=== PATIENT | male | born 1930 | race Caucasian/White ===

== ENCOUNTER 2017-02-04 05:40 | Day surgery (SDC) | payer MEDICARE, OTHER ==
[~2017-02-04] VITALS: Ht 170.2 cm; Wt 89.8 kg
[~2017-02-04 05:40] MED LIST: ASPIR 8181 MG PO; ATENOLOL50 MG PO; CALCIUM600 MG PO; FOLIC ACID1 MG PO; FUROSEMIDE20 MG PO; LANSOPRAZOLE30 MG PO; METHOTREXATE2.5 MG PO; SYMBICORT 16010.2 GM INH; SYNTHROID137 MCG PO
[2017-02-04] MEDS ORDERED: NORCO 5-325 TA1 EACH PO (11:39)
--- NOTE | 2017-02-05 09:34 | OR ---
[facility] [address], [place] [address] Signed DATE OF PROCEDURE: 02/04/17 PREOPERATIVE DIAGNOSIS: Reducible left inguinal hernia. POSTOPERATIVE DIAGNOSIS: Reducible left indirect inguinal hernia. PROCEDURE PERFORMED: Left Charlie onlay mesh inguinal herniorrhaphy. ESTIMATED BLOOD LOSS: None. INDICATIONS Annabelle is an 86-year-old gentleman who remains incredibly active and unbelievably muscular for his age. He said he has had constipation now for several years. He generally drinks prune juice every morning with good results. However, he has noticed pain and swelling in his left groin the last several months. He said it has become quite problematic. He said it is always swollen and the pain is always a 3 to a 5/10. He said it is worse with any activities. He said it is getting larger and it is now interfering with his bowel movements. He was worried that he might have a hernia. He went to his primary care provider. He was then asked to see me as a general surgeon. In the office, he clearly has a moderate to large left inguinal hernia. We were unable to reduce it in the office, but in the OR once we had pharmacologic paralysis, we were able to reduce it. The right side was unremarkable. Both testicles are descended and unremarkable. I gave Annabelle a booklet on hernias in the office. We discussed the nature of an inguinal hernia. He understands the difference between the primary suture repair and a mesh repair. He also understands the expected intraop and postop course. There is risk of surgery including, but not limited to bleeding, infection, scarring, change in contour of the skin, damage to the nerves, ischemic orchitis, recurrent hernias, and chronic pain. He has expressed understanding and would like to proceed. DESCRIPTION OF PROCEDURE I met with Annabelle and his son in our preop area. We all agreed it was the left groin we marked that appropriately. After this, Annabelle was taken into our operating room and placed in a supine position under general endotracheal tube anesthesia. He was given preoperative antibiotics along with subcutaneous heparin. SCDs were utilized. He was then prepped and draped in usual sterile fashion. We utilized our standard oblique incision in the left groin and carried that down to the tissue bluntly and with the cautery. The external oblique fascia was opened along its length and developed medially and laterally. The ilioinguinal iliohypogastric nerves were visualized and protected throughout the case. The cord structures were elevated at the level of pubic tubercle with the help of the Kristine drain. The direct space was unremarkable. 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 After this, we could easily see Electronically Signed By: TISH DUFF MD 02/05/17 0934 PATIENT NAME: ANNABELLE OROZCO OPERATIVE REPORT DATE OF : [birth year] PHYSICIAN: TISH DUFF MD REPORT #: [id number] REPORT IS CONFIDENTIAL AND NOT TO BE RELEASED WITHOUT AUTHORIZATION [address] [address] Signed his hernia sac coming through the deep ring. It was from the cord structures and sutured ligated at the neck, amputated, and passed off the field. We then cut a piece of flat Prolene mesh to fit his groin and a slit was made in the mesh to accommodate the cord structures at the level of deep ring. The mesh was held in place medially and laterally with the help of running #1 Prolene suture. There was no undue tension of the mesh on the cord structures at the level of deep ring. After this, the wound was irrigated and suctioned out until clear. Local anesthetic was copiously injected into the wound. The external oblique fascia was closed over the repair with the help of a running 2-0 PDS suture. The Gregg's fascia was reapproximated in a running 3-0 Monocryl suture. The dermis was reapproximated with interrupted 3-0 subcuticular Monocryl sutures. Skin edges were reapproximated with running 6-0 fast absorbing plain gut suture. Dry gauze and tape were then applied. After this, the aorta was awakened from his anesthesia, extubated in the OR, taken to recovery in stable condition. MD MELISSA Duval/Modl /[id number] cc: Dr. Gavin Francisco Electronically Signed By: TISH DUFF MD 02/05/17 0934 PATIENT NAME: ANNABELLE OROZCO OPERATIVE REPORT DATE OF : [birth year] PHYSICIAN: TISH DUFF MD REPORT #: [id number] REPORT IS CONFIDENTIAL AND NOT TO BE RELEASED WITHOUT AUTHORIZATION
== END 2017-02-04 11:50 | disposition home or self-care (01) ==
LOC: DS 05:40
PROVIDERS: Colon & Rectal Surgery
PROC: 0YU60JZ Supplement Left Inguinal Region with Synthetic Substitute, Open Approach (ICD-10-PCS; principal; 2017-02-04 06:45)
DX: K40.90 Unilateral inguinal hernia, without obstruction or gangrene, not specified as recurrent (principal); Z79.899 Other long term (current) drug therapy; I10 Essential (primary) hypertension; J44.9 Chronic obstructive pulmonary disease, unspecified; K21.9 Gastro-esophageal reflux disease without esophagitis; E03.9 Hypothyroidism, unspecified; M06.9 Rheumatoid arthritis, unspecified; N40.0 Benign prostatic hyperplasia without lower urinary tract symptoms; Z87.11 Personal history of peptic ulcer disease; M85.80 Other specified disorders of bone density and structure, unspecified site; Z90.89 Acquired absence of other organs; Z98.1 Arthrodesis status; Z79.82 Long term (current) use of aspirin; Z87.891 Personal history of nicotine dependence; Z88.0 Allergy status to penicillin; Z88.8 Allergy status to other drugs, medicaments and biological substances; Z98.890 Other specified postprocedural states
CPT/HCPCS: 00830; C1781; J0690; J1100; J1644; J2250; J2405; J2704; J3010; J7120

== ENCOUNTER 2017-05-05 18:34 | Observation (INO) | payer MEDICARE, OTHER ==
[~2017-05-05] VITALS: Ht 170.2 cm; Wt 88.4 kg
[~2017-05-05 18:34] MED LIST changes: +NORCO 5-325 TA1 EACH PO
[2017-05-05] MEDS ORDERED: BENICAR20 MG PO (18:58)
--- NOTE | 2017-05-06 01:30 | NUR ---
HANDOFF REPORT RECEIVED FROM BUCKY SUTTON IN EMERGENCY DEPARTMENT. PT TO TRAVEL VIA STRETCHER ON ROOM AIR TO MEDICAL SURGICAL DEPT.
--- NOTE | 2017-05-06 01:40 | NUR ---
PT ARRIVES TO MED SURG FLOOR BY STRETCHER, ABLE TO AMBULATE FROM STRETCHER TO HOSPITAL BED FROM HALLWAY, DENIES SOB, SPO2 95% ON ROOM AIR ON ARRIVAL. PT BROUGHT CRACKERS, ICE WATER PER REQUEST. CRACKLES NOTED BILATERALLY IN BASES, LUNGS SOUND CLEAR IN UPPER LOBES. IV SITE IN LEFT ARM FLUSHES EASILY, SITE WNL. PT HAS COUGH, NON-PRODUCTIVE AT THIS TIME, STATES HE "SOMETIMES COUGHS STUFF UP". PT GIVEN CALL LIGHT, PERSONAL SUPPLIES, TISSUES WITHIN REACH. INSTRUCTED TO CALL BEFORE GETTING UP DUE TO HX OF FALLS.
--- NOTE | 2017-05-06 02:30 | NUR ---
PT SLEEPING, AWAKENS TO RN VOICE. PT COUGHING, NON-PRODUCTIVE. ASSISTED PT TO RESTROOM FOR 150 ML VOID WITH SBA, PT DENIES SOB. PROVIDED PT WITH ORAL CARE SUPPLIES, DENTURES IN CUP. NC WITH 2L OXYGEN SET UP FOR PT USE WHILE SLEEPING. PT HAS CALL LIGHT IN REACH. NO ADDITIONAL REQUESTS AT THIS TIME.
--- NOTE | 2017-05-06 04:14 | NUR ---
CHECKED ON PT, PT SLEEPING, LIGHTS OFF IN ROOM, VISIBLE CHEST RISE. RT MARYJANE IN ROOM, NO NEBULIZER GIVEN AT THIS TIME PT ASLEEP.
--- NOTE | 2017-05-06 06:07 | NUR ---
PT SLEEPING ON RIGHT SIDE, EYES CLOSED, RR 18, PT HAS NC ON WITH 2L OXYGEN. CALL LIGHT IN REACH.
--- NOTE | 2017-05-06 06:27 | NUR ---
PT HAS SLEPT THROUGHOUT MORNING ON 2L OXYGEN BY SC AFTER ARRIVING TO FLOOR SHORTLY AFTER 0100. PT ALERT AND ORIENTED X 3, COOPERATIVE. CRACKLES HEARD IN PTS LUNGS BILATERALLY IN LOWER BASES. PT HAS BEEN UP TO RESTROOM FOR VOID, SBA. IV SALINE LOCKED WNL.
--- NOTE | 2017-05-06 06:35 | NUR ---
IN PT ROOM TO ASSESS PT, PT SLEEPING, AWAKENS TO TOUCH. LUNGS SOUND DIMINISHED, CRACKLES NOTED IN LOWER LOBES BILATERALLY. PT CONTINUES TO HAVE CONGESTED COUGH. PT HAS NO REQUESTS AT THIS TIME, CALL LIGHT IN REACH. PT CONTINUES TO BE ON 2L NC FOR SLEEP.
--- NOTE | 2017-05-06 07:25 | NUR ---
REPORT RECEIVED FROM MIRTA. PATIENT RESTING IN BED, APPEARS TO BE SLEEPING AT THE TIME OF REPORT. NO APPARENT DISTRESS. RR EVEN/UNLABORED PATIENT IS ON 2L OF O2. CALL LIGHT IN REACH.
--- NOTE | 2017-05-06 08:31 | NUR ---
BP MEDS HOLD DUE TO LOW BP. WILL TALKED TO DR RAMACHANDRAN.
--- NOTE | 2017-05-06 08:40 | NUR ---
PATIENT RESTING IN THE CHAIR. RT WAS IN ROOM TO ADMINISTERED NEB TX. PATIENT 02 SAT IS ABOVE 94% ON RA. PATIENT DENIES ANY PAIN AT THIS TIME. SHIFT ASSESSMENT DONE. LUNGS CLEAR AND DIM IN THE BASES. PATIENT HAS SOME OCCASIONAL COUGH. IV SITE PATENT. SL. PATIENT DENIES SOB. NO APPARENT DISTRESS.TALKED TO MED ABOUT PATIENT LOW BP. WILL RECHECK BP. CALL LIGHT WITHIN PATIENT REACH. WILL CONTINUE TO MONITOR.
--- NOTE | 2017-05-06 09:38 | NUR ---
PT WALKED 2 FULL LAPS WITH THE ASSISTANCE OF A WALKER. PT WAS ON A PULSE OX AND O2 SATURATION STAYED BETWEEN 93%-98%. PT REPORTED HE WAS NOT DIZZY OR SHORT OF BREATH AT ALL AND SAID HE FELT GREAT. PT IS NOW SITTING UP IN CHAIR WITH CALL LIGHT IN REACH
--- NOTE | 2017-05-06 10:10 | NUR ---
PATIENT WAS UP WALKING IN THE HALLWAY WITH HUEY CLAUDIO. TOLERATED WELL. 02 SAT STAYED ABOVE 93% ON RA DURING AMBULATION. BP WAS RECHECK PER MD ORDER AND BP MEDS WERE ADMINISTERED. PATIENT RESTING IN THE CHAIR AT THIS TIME.
--- NOTE | 2017-05-06 12:03 | NUR ---
PATIENT SITTING IN THE CHAIR EATING LUNCH. NO COMPLAINTS AT THIS TIME. NO APPARENT DISTRESS. NO OTHER NEEDS AT THIS TIME. WILL CONTINUE TO MONITOR.
--- NOTE | 2017-05-06 12:44 | NUR ---
PATIENT RESTING IN THE CHAIR GETTING A NEB TX. RT IN ROOM. ASSISTED PATIENT TO BATHROOM, CHANGED GOWN. SECOND ASSESSMENT DONE. PATIENT DENIES PAIN, SOB OR DIZZINESS. NO APPARENT DISTRESS WILL CONTINUE TO MONITOR. CALL LIGHT IN REACH
--- NOTE | 2017-05-06 12:49 | NUR ---
MED REC COMPLETE WITH [facility] REFILL HISTORY
[2017-05-06] MEDS ORDERED: ATENOLOL50 MG PO (13:32)
[2017-05-06] MEDS ORDERED: COMBIVENT RESPIM4 GM INH (13:36)
[2017-05-06] MEDS ORDERED: SYMBICORT 16010.2 GM INH (13:37)
[2017-05-06] MEDS ORDERED: BENZONATATE100 MG PO (13:37)
[2017-05-06] MEDS ORDERED: PREDNISONE20 MG PO (13:38)
[2017-05-06] MEDS ORDERED: CEFUROXIME500 MG PO (13:41)
--- NOTE | 2017-05-06 22:41 | EKG ---
[facility] [address] [facility] [place] [address] Signed Sinus rhythm with frequent premature ventricular complexes Inferior infarct , age undetermined Abnormal ECG When compared with ECG of 25-JAN-2017 14:10, premature ventricular complexes are now present QT has lengthened Confirmed by BRAD RAMACHANDRAN MD ([id number]) on 05/06/2017 10:41:14 PM Electronically Signed By: BRAD RAMACHANDRAN MD 05/06/17 2241 PATIENT NAME: ANNABELLE OROZCO BLAKE Electrocardiogram DATE OF : [birth year] PHYSICIAN: BRAD RAMACHANDRAN MD REPORT #: [id number] REPORT IS CONFIDENTIAL AND NOT TO BE RELEASED WITHOUT AUTHORIZATION
== END 2017-05-06 14:41 | disposition home or self-care (01) ==
LOC: ED 18:34 → MS 18:35
PROVIDERS: ADMIT Internal Medicine
DX: J44.1 Chronic obstructive pulmonary disease with (acute) exacerbation (principal); J44.0 Chronic obstructive pulmonary disease with (acute) lower respiratory infection; J20.9 Acute bronchitis, unspecified; J98.09 Other diseases of bronchus, not elsewhere classified; I11.0 Hypertensive heart disease with heart failure; G47.34 Idiopathic sleep related nonobstructive alveolar hypoventilation; I50.32 Chronic diastolic (congestive) heart failure; E03.9 Hypothyroidism, unspecified; Z23 Encounter for immunization; M06.9 Rheumatoid arthritis, unspecified; Z87.891 Personal history of nicotine dependence; Z88.0 Allergy status to penicillin; Z79.82 Long term (current) use of aspirin; Z79.51 Long term (current) use of inhaled steroids; Z79.899 Other long term (current) drug therapy
CPT/HCPCS: 71046; 71260; 80053; 83880; 84484; 85025; 85379; 87070; 87205; 87502; 90662; 93005; 93010; 94640; 94668; 96374; 99285; G0008; G0378; J2930; J7512; Q9967